=== PATIENT | male | born 1950 | race Caucasian/White ===

== ENCOUNTER 2022-10-23 08:25 | Day surgery (SDC) | payer OTHER, SELFPAY ==
[2022-10-23] MEDS: Lactated Ringers 1,000 ML 15 ML IV (08:50)
[2022-10-23 08:53] VITALS: BP 139/76; PULSE 58; RESP 17; TEMP 36.1; O2SAT 97; BMI 29.7
--- NOTE | 2022-10-23 09:25 | HP.PCM_ITS ---
History and Physical Date of Admission: 10/23/22 Intake Vital Signs 09/23/2308:59 10/02/2307:09 Height 5 ft 3 in 5 ft 3 in Weight: 161 lb 2 oz BMI 28.5 BP 134/85 H Blood Pressure Location Lt brachial Position Sitting Respiration 16 Pulse 55 L Pulse Source NIBP Temp 97.7 F L Temp Source Temporal Pulse Oximetry (%) 97 Oxygen Delivery Method room air Intake Visit Reasons: SWALLOWING/CHOKING ISSUES Chief Complaint: swalling /choking issues Mobile Product Manager Required: No Is patient in pain?: No Allergies No Known Allergies Allergy (Verified 10/01/22 08:09) Medications aspirin 81 mg chewable tablet 81 mg PO DAILY 09/23/22 [History Confirmed 10/01/22] atorvastatin 10 mg tablet 10 mg PO DAILY 09/23/22 [History Confirmed 10/01/22] PFSH Medical History (Updated 10/01/22 @ 08:[address] Jf Vanegas MD) CVA (cerebral vascular accident) Dysphagia Hemorrhoids Surgical History (Updated 10/01/22 @ 08:08 by Naa Leon) History of colonoscopy (~2018) History of esophageal dilatation History of esophagogastroduodenoscopy (EGD) Social History (Updated 10/01/22 @ 08:09 by Naa Leon) Smoking Status: Former smoker alcohol intake: never substance use type: does not use HPI HPI HPI: Patient is a 71-year-old male here with dysphagia. He reports he feels like his food is getting stuck in his chest. He says if he eats too much bread or meat that things will get clogged and he will vomit. He says that he was dilated 30 years ago and had improvement but then over the last few years he is slowly been worsening. He denies acid reflux. ROS General General: No weight change, appetite, fatigue, colon cancer or breast cancer HEENT HEENT: Yes difficulty swallowing; No eye injury, eye surgery, swollen glands or hoarseness Endo Endocrine: No thyroid disease, diabetes mellitus, thyroid cancer, Hair loss, heat intolerance or cold intolerance Musc Musculoskeletal: No back problems, arthritis, rheumatoid arthritis, gout or joint pain Cardio Cardiovascular: No murmur, pacemaker, heart disease, atrial fibrillation, high blood pressure, heart attack, heart stent, palpitations, shortness of breat with exertion or chest pain Psych Psychiatric: No depression, anxiety or hearing voices Resp Respiratory: No shortness of breath, No sleep apnea, No cough, No COPD, No asth ma, No emphysema and No wheezing Gastro Gastrointestinal: No abdominal pain, No nausea or vomiting, No diarrhea, No constipation, No blood in stool, No acid reflux, Yes hemorrhoids, No ulcers, No gallbladder problem and No black,tarry stools Cj Hematologic: Yes blood thinners, No blood disorders, No bleeding, No anemia and No blood clots Exam Const General: cooperative Orientation: alert and oriented x3 HENMT Head: normal to inspection Neck Neck: normal visual inspection and full ROM Chest Chest palpation & inspection: normal inspection of the chest Resp Effort & Inspection: normal respiratory effort Auscultation: clear to auscultation bilaterally Cardio Rate: regular rate Rhythm: regular rhythm GI Inspection: non-distended Palpation: soft and nontender Skin General: no rashes or lesions noted Neuro General: patient alert and patient oriented x3 Extrem General: full ROM Psych Appearance: grossly normal Mental Status: mental status grossly normal Assessment and Plan Assessment and Plan (1) Dysphagia: Status: Acute Qualifiers: Dysphagia type: esophageal phase Qualified Code(s): R13.19 - Other dysphagia Plan: The patient has been having esophageal dysphagia. I discussed EGD with dilation. I also discussed the increased risks with dilation including p erforation and bleeding. I explained endoscopy in detail to the patient. I explained the risks including but not limited to stroke or heart attack with anesthesia, perforation of the GI tract, bleeding, infection. I explained that any of these could necessitate further emergency surgery. The patient understands and all questions were answered sufficiently. The patient wishes to proceed with procedure. Jf Vanegas MD Pager: [facility] [address] [place] [address], [address] [place] [address] Office: I have examined the patient and the H&P has been reviewed. There are no clinical changes since date of exam.
--- NOTE | 2022-10-23 09:42 | OP.EGD_ITS ---
Patient Name: Curtis Sullivan Procedure Date: 10/23/2022 9:24 AM Date of : 1950 Age: 72 Procedure: Upper GI endoscopy Indications: Dysphagia Providers: Jf Vanegas MD Referring MD: Jf Vanegas MD Medicines: Monitored Anesthesia Care Patient Profile: This is a 72 year old male. Refer to note in patient chart for documentation of history and physical. Patient has symptoms of chronic dysphagia. Complications: No immediate complications. Estimated blood loss: Minimal. Procedure: Pre-Anesthesia Assessment: - Prior to the procedure, a History and Physical was performed, and patient medications and allergies were reviewed. The patient's tolerance of previous anesthesia was also reviewed. The risks and benefits of the procedure and the sedation options and risks were discussed with the patient. All questions were answered, and informed consent was obtained. Prior Anticoagulants: The patient has taken no anticoagulant or antiplatelet agents except for aspirin. After reviewing the risks and benefits, the patient was deemed in satisfactory condition to undergo the procedure. After obtaining informed consent, the endoscope was passed under direct vision. Throughout the procedure, the patient's blood pressure, pulse, and oxygen saturations were monitored continuously. The gastroscope was introduced through the mouth, and advanced to the third part of duodenum. The upper GI endoscopy was accomplished without difficulty. The patient tolerated the procedure well. Scope In: 9:31:51 AM Scope Out: 9:37:37 AM Total Procedure Duration Time 0 hours 5 minutes 46 seconds Findings: One benign-appearing, intrinsic severe (stenosis; an endoscope cannot pass) stenosis was found at the gastroesophageal junction. This stenosis measured 2 cm (in length). The stenosis was traversed. A TTS dilator was passed through the scope. Dilation with a 10-11-12 mm balloon dilator was performed to 12 mm. The dilation site was examined following endoscope reinsertion and showed moderate improvement in luminal narrowing. Estimated blood loss was minimal. The stomach was normal. The examined duodenum was normal. Impression: - Benign-appearing esophageal stenosis. Dilated. - Normal stomach. - Normal examined duodenum. - No specimens collected. Recommendation: - Discharge patient to home. - Resume previous diet and soft diet for 2 days. - Continue present medications. Procedure Code(s): --- Professional --- 84672, Esophagogastroduodenoscopy, flexible, transoral; with transendoscopic balloon dilation of esophagus (less than 30 mm diameter) Diagnosis Code(s): --- Professional --- K22.2, Esophageal obstruction R13.10, Dysphagia, unspecified CPT copyright 2021 [employer]. All rights reserved. The codes documented in this report are preliminary and upon terminal make up operator review may be revised to meet current compliance requirements. Jf Vanegas MD 10/23/2022 9:41:54 AM This report has been signed electronically. Number of Addenda: 0 Note Initiated On: 10/23/2022 9:24 AM
--- NOTE | 2022-10-23 09:42 | OP.CCLET_ITS ---
10/23/2022 Magan Argueta Re : Upper GI endoscopy procedure for Curtis Sullivan Carmelo Salgado This procedure was performed on Sunday, October 23, 2022. My impressions and recommendations are as follows: Impressions : - Benign-appearing esophageal stenosis. Dilated. - Normal stomach. - Normal examined duodenum. - No specimens collected. Recommendations : - Discharge patient to home. - Resume previous diet and soft diet for 2 days. - Continue present medications. My findings are described in the full procedure note, which is enclosed. If I can be of further assistance, please feel free to contact me at Doctor phone number(s): , Work: . Sincerely, Jf Vanegas MD 10/23/2022 9:41:54 AM This report has been signed electronically.
[2022-10-23 09:44] VITALS: BP 139/76; BP 94/58; PULSE 80; RESP 12; TEMP 36.2; O2SAT 93
[2022-10-23 09:50] VITALS: BP 139/76; BP 87/61; PULSE 75; RESP 12; O2SAT 94
[2022-10-23 09:55] VITALS: BP 139/76; BP 95/59; PULSE 69; RESP 18; O2SAT 95
[2022-10-23 10:04] VITALS: BP 114/80; BP 139/76; PULSE 67; RESP 18; TEMP 36.1; O2SAT 95
[2022-10-23 10:20] VITALS: BP 139/76
== END 2022-10-23 10:49 | disposition home or self-care (01) ==
LOC: EN 08:28 → AC 08:30
PROVIDERS: PCP Nurse Practitioner Family; Referring Provider Surgery; Visit Provider Surgery
PROC: 0DJ08ZZ Inspection of Upper Intestinal Tract, Via Natural or Artificial Opening Endoscopic (ICD-10-PCS; CPT 43235; principal; 2022-10-23 09:25)
DX: K22.2 Esophageal obstruction (principal); Z87.891 Personal history of nicotine dependence; Z79.01 Long term (current) use of anticoagulants; E78.00 Pure hypercholesterolemia, unspecified; I10 Essential (primary) hypertension; Z79.899 Other long term (current) drug therapy; Z79.82 Long term (current) use of aspirin
CPT/HCPCS: 43249; J7120; J2405